=== PATIENT | male | born 1945 | race African-American/Black ===

== ENCOUNTER 2017-04-04 12:55 | Emergency (ER) | payer MEDICARE, OTHER ==
[~2017-04-04] VITALS: Ht 185.4 cm; Wt 93.9 kg
[2017-04-04 12:55] VITALS: BP 117/72
--- NOTE | 2017-04-04 13:00 | NUR ---
PLACED PT IN WAITING ROOM AWAITS FOR BED AVAILABILITY. PT ALERT ORIENTED STABLE C/O GOUT. DENIES SI/HI. ER AWARE
--- NOTE | 2017-04-04 14:30 | NUR ---
PT REFUSED TO GO IN THE ROOM HE CALL[facility]
[2017-04-04] MEDS ORDERED: IBUPROFEN 600 MG TABLET PO ONE ×2 (15:00→15:07)
--- NOTE | 2017-04-04 15:20 | NUR ---
PT TO TAKE ACCESS HOME. PT TAKEN TO THE LOBBY VIA . PT REC'D GRIPPER SOCKS AND A SANDWICH.
== END 2017-04-04 15:22 | disposition home or self-care (01) ==
LOC: ER 12:57
DX: M10.9 Gout, unspecified (principal); F10.10 Alcohol abuse, uncomplicated; F31.9 Bipolar disorder, unspecified; I10 Essential (primary) hypertension; F14.10 Cocaine abuse, uncomplicated
CPT/HCPCS: A4606; Z7610